=== PATIENT | male | born 1990 | race Two or more races ===

== ENCOUNTER 2021-11-04 11:30 | Emergency (ER) | payer OTHER ==
[~2021-11-04] VITALS: Ht 185.4 cm; Wt 109.1 kg
[2021-11-04] MEDS ORDERED: HYDROCODONE/ACETAMINOPHEN 10-325 MG TABLET PO ONE (13:00)
[2021-11-04 14:35] VITALS: BP 122/66
[2021-11-04] MEDS ORDERED: DEXAMETHASONE SOD PHOS 4 MG/ML 5 ML VIAL IM ONE (14:45)
[2021-11-04] MEDS ORDERED: CYCL-397 PO (15:07)
== END 2021-11-04 15:34 | disposition home or self-care (01) ==
LOC: EMS 11:30
DX: M54.41 Lumbago with sciatica, right side (principal); F17.210 Nicotine dependence, cigarettes, uncomplicated; F12.90 Cannabis use, unspecified, uncomplicated
CPT/HCPCS: 93971; 96372; 99284; J1100

== ENCOUNTER 2024-04-17 10:30 | Emergency (ER) | payer OTHER ==
[~2024-04-17] VITALS: Ht 185.4 cm; Wt 122.7 kg
[~2024-04-17 10:30] MED LIST: CYCL-397 PO
[2024-04-17 10:40] VITALS: TEMP 98.6
[2024-04-17] MEDS: METHOCARBAMOL 500 MG TABLET PO ONE (12:19)
[2024-04-17] MEDS: LIDOCAINE 5% TRANSDERMAL PATCH TD ONE (12:19)
[2024-04-17] MEDS: ACETAMINOPHEN 500 MG TABLET PO ONE (12:19)
[2024-04-17] MEDS: KETOROLAC TROMETHAMINE 30 MG/ML VIAL IM ONE (12:20)
[2024-04-17] MEDS: DEXAMETHASONE 4 MG TABLET PO ONE (12:55)
[2024-04-17] MEDS ORDERED: DICL100G60 TP (13:28)
[2024-04-17] MEDS ORDERED: METH-812 PO (13:28)
[2024-04-17 13:30] VITALS: BP 111/71; PULSE 70; RESP 20; O2SAT 100
== END 2024-04-17 13:31 | disposition home or self-care (01) ==
LOC: EMS 10:30
DX: M54.31 Sciatica, right side (principal); M54.50 Low back pain, unspecified; F17.210 Nicotine dependence, cigarettes, uncomplicated; F12.90 Cannabis use, unspecified, uncomplicated
CPT/HCPCS: 99284; 96372; J8540; J1885